=== PATIENT | male | born 1980 | race Caucasian/White ===

== ENCOUNTER 2019-02-01 09:13 | Emergency (ER) | payer BC ==
[2019-02-01 09:20] VITALS: BP 133/75; PULSE 96; RESP 18; TEMP 98.6
--- NOTE | 2019-02-01 09:58 | ED ---
Male Urogenital HPI - General Chief complaint: Urogenital Stated complaint: Blood in urine/crushed testicle Time Seen by Provider: 02/01/19 09:32 Source: patient, RN notes reviewed Limitations: no limitations - History of Present Illness Initial comments: 38-year-old male presents emergency Department chief complaint of testicular pain. Patient states that he went to stand on a table yesterday and states that he sat on his scrotum. Patient states he had instant pain. Patient states she's had increase in swelling and discomfort in the left side. Patient also states that it's morning he urinated and noted that he had hematuria. Patient states it only happened once. Denies any dysuria. Has no abdominal pain no flank pain. - Related Data Previous Rx's Medication Instructions Recorded Ibuprofen [Motrin] 600 mg PO Q8HR PRN #30 tab 02/01/19 Allergies Allergy/AdvReac Type Severity Reaction Status Date / Time No Known Allergies Allergy Verified 02/01/19 10:06 Review of Systems ROS Statement: Those systems with pertinent positive or pertinent negative responses have been documented in the HPI. ROS Other: All systems not noted in ROS Statement are negative. Past Medical History Past Medical History: Sleep Apnea/CPAP/BIPAP Additional Past Medical History / Comment(s): ANEMIA/POSITIVE GUIAC. USES CPAP. History of Any Multi-Drug Resistant Organisms: None Reported Past Surgical History: Appendectomy Additional Past Anesthesia/Blood Transfusion Reaction / Comment(s): PATIENT STOPPED BREATHING DURING THE APPENDECTOMY, TESTED FOR SLEEP APNEA LATER, POSITIVE. Past Psychological History: No Psychological Hx Reported Smoking Status: Current every day smoker Past Alcohol Use History: Occasional Past Drug Use History: Marijuana General Exam Limitations: no limitations General appearance: alert, in no apparent distress Head exam: Present: atraumatic, normocephalic, normal inspection Respiratory exam: Present: normal lung sounds bilaterally. Absent: respiratory distress, wheezes, rales, rhonchi, stridor Cardiovascular Exam: Present: regular rate, normal rhythm, normal heart sounds. Absent: systolic murmur, diastolic murmur, rubs, gallop, clicks GI/Abdominal exam: Present: soft, normal bowel sounds. Absent: distended, tenderness, guarding, rebound, rigid exam: Present: testicular tenderness, scrotal swelling (Moderate left-sided). Absent: urethral discharge Back exam: Absent: CVA tenderness (R), CVA tenderness (L) Neurological exam: Present: alert, oriented X3 Course Vital Signs 02/01/19 09:18 Temperature 98.6 F Pulse Rate 96 Respiratory 18 Rate Blood Pressure 133/75 O2 Sat by Pulse 99 Oximetry Medical Decision Making - Medical Decision Making Ultrasound reveals bilateral hydroceles, urinalysis unremarkable. Patient given supportive treatments will follow-up with urology if no improvement return for any worsening symptoms. - Lab Data Lab Results 02/01/19 Range/Units 09:46 Urine Color Yellow Urine Appearance Clear (Clear) Urine pH 7.5 (5.0-8.0) Ur Specific [place] 1.008 (1.001-1.035) Urine Protein Negative (Negative) Urine Glucose (UA) Negative (Negative) Urine Ketones Negative (Negative) Urine Blood Negative (Negative) Urine Nitrite Negative (Negative) Urine Bilirubin Negative (Negative) Urine Urobilinogen <2.0 (<2.0) mg/dL Ur Leukocyte Esterase Negative (Negative) Disposition Clinical Impression: Hydrocele Disposition: HOME SELF-CARE Condition: Stable Instructions (If sedation given, give patient instructions): Hydrocele (ED) Additional Instructions: Please return to the Emergency Department if symptoms worsen or any other concerns. Prescriptions: Ibuprofen [Motrin] 600 mg PO Q8HR PRN #30 tab PRN Reason: Pain Is patient prescribed a controlled substance at d/c from ED?: No Referrals: Nonstaff,Physician [REFERRING] - 1-2 days Aleksander Alfred MD [STAFF PHYSICIAN] - 1-2 days Time of Disposition: 11:26
[2019-02-01 10:22] LABS: Appearance,Urine Clear (Clear); Bilirubin,Urine Negative (Negative); Blood,Urine Negative (Negative); Color,Urine Yellow; Glucose,Urine (UA) Negative (Negative); Ketones,Urine Negative (Negative); Leukocyte Esterase,Urine Negative (Negative); Nitrite,Urine Negative (Negative); PH, Urine 7.5 (5.0-8.0); Protein,Urine Negative (Negative); Specific Gravity,Urine 1.008 (1.001-1.035); Urobilinogen,Urine <2.0 mg/dL (<2.0)
--- NOTE | 2019-02-01 11:16 | US ---
EXAMINATION TYPE: US scrotum with doppler. Grayscale and color Doppler Duplex imaging performed of [address] scrotum. DATE OF EXAM: 02/01/2019 COMPARISON: NONE CLINICAL HISTORY: pain. Patient sat on left testicle yesterday, swelling on the left EXAM MEASUREMENTS: TESTICLES: Right Testicle: 5.5 x 3.7 x 2.8 cm Left Testicle: 4.4 x 4.0 x 2.8 cm EPIDIDYMIS HEAD: Right Epididymis: 1.7 cm Left Epididymis: 1.8 cm, 1.5cm cyst seen Doppler performed to assess for testicular vascularity; good bilateral color flow and waveforms are s een. There is no evidence of testicular torsion. Presence of hydroceles: yes, bilaterally Presence of varicoceles: no IMPRESSION: 1. Bilateral hydroceles
== END 2019-02-01 12:00 | disposition home or self-care (01) ==
LOC: EC 09:13
DX: N43.3 Hydrocele, unspecified (principal); R31.9 Hematuria, unspecified; N50.812 Left testicular pain; F17.200 Nicotine dependence, unspecified, uncomplicated; G47.30 Sleep apnea, unspecified; Z99.89 Dependence on other enabling machines and devices
CPT/HCPCS: 76870; 81003; 93975; 99284

== ENCOUNTER → 2024-09-28 | Outpatient (CLI) | payer BC ==
[2024-09-28 20:22] LABS: Basophils # (A) 0.11 X 10*3/uL (0.00-0.10); Basophils % (A) 1.6 %; Elliptocytes 2+ (None Seen); Eosinophils % (A) 5.7 %; HCT 35.8 % (39.6-50.0); HGB 10.2 g/dL (13.0-17.0); Lymphocytes # (A) 1.64 X 10*3/uL (0.90-5.00); Lymphocytes % (A) 23.5 %; MCH 17.6 pg (27.0-32.0); MCHC 28.5 g/dL (32.0-37.0); MCV 61.7 FL (80.0-97.0); Microcytosis (M) 3+ (None Seen); Monocytes # (A) 0.58 X 10*3/uL (0.20-1.00); Monocytes % (A) 8.3 %; NRBC Per 100 WBC 0 X 10*3/uL (0.00-0.01); Neutrophils # (A) 4.22 X 10*3/uL (1.80-7.70); Neutrophils % (A) 60.5 %; Platelet Count 307 X 10*3/uL (140-440); RDW 21.9 % (11.5-14.5); WBC 6.98 X 10*3/uL (4.50-10.00)
[2024-09-28 20:30] LABS: ALT 26 U/L (10-49); AST 22 U/L (14-35); Albumin 4.4 g/dL (3.8-4.9); Alkaline Phosphatase 67 U/L (41-126); BUN/Creat Ratio 8.25 Ratio (12.00-20.00); Blood Urea Nitrogen 6.6 mg/dL (9.0-27.0); Calcium 8.9 mg/dL (8.7-10.3); Carbon Dioxide 20.9 mmol/L (21.6-31.8); Chloride 100 mmol/L (96-109); Chol/HDL Ratio 2.89 Ratio; Globulin 2.1 g/dL (1.6-3.3); Glucose 87 mg/dL (70-110); LDL Cholesterol,Calculated 83.5 mg/dL (0.0-131.0); Potassium 4.3 mmol/L (3.5-5.5); Sodium 132 mmol/L (135-145); Total Bilirubin <0.2 mg/dL (0.3-1.2); Total Protein 6.5 g/dL (6.2-8.2); VLDL Calculation 11.32 mg/dL (5.00-40.00)
== END | disposition home or self-care (01) ==
LOC: LABWHC1 14:48
PROVIDERS: ATTEND Physician Assistant
DX: Z13.9 Encounter for screening, unspecified (principal)
CPT/HCPCS: 36415; 80053; 80061; 85025